=== PATIENT | female | born 1975 | race Asian ===

== ENCOUNTER 2024-01-18 11:34 | Emergency (ER) | payer BC ==
[~2024-01-18] VITALS: Ht 157.5 cm; Wt 60.5 kg
[2024-01-18 11:39] VITALS: BP 128/86; PULSE 72; RESP 18; TEMP 98; O2SAT 98
== END 2024-01-18 12:29 | disposition home or self-care (01) ==
LOC: EMS 11:34
DX: F32.9 Major depressive disorder, single episode, unspecified (principal)
CPT/HCPCS: 99281; Z7502